=== PATIENT | male | born 1995 | race Two or more races ===

== ENCOUNTER → 2019-09-11 | Day surgery (SDC) | payer BC ==
[~2019-09-11] MED LIST: FENTANYL CITRATE/PF 100MCG/2 ML INJ ONE; MIDAZOLAM HCL 2 MG/2 ML VIAL ONE; PANTOPRAZOLE 40 MG 10ML VIAL ONE; PROPOFOL IV EMULSION 10 MG/ML 50 ML VIAL ONE
[2019-09-11 12:25] VITALS: BP 117/80
== END | disposition home or self-care (01) ==
LOC: OR 09:33
PROVIDERS: ATTEND Internal Medicine Gastroenterology
DX: K25.9 Gastric ulcer, unspecified as acute or chronic, without hemorrhage or perforation (principal); K20.9 Esophagitis, unspecified; K59.00 Constipation, unspecified
CPT/HCPCS: 43239; C9113; J2250; J2704; J3010

== ENCOUNTER → 2019-10-06 | Day surgery (SDC) | payer BC ==
[~2019-10-06] MED LIST changes: +HYOSCYAMINE 0.125 MG TAB ONE; -PANTOPRAZOLE 40 MG 10ML VIAL ONE
[2019-10-06 15:49] VITALS: BP 108/74
[2019-10-06 17:17] LABS: WBC,FECAL (FECAL LACTOFERRIN) NEGATIVE (NEGATIVE)
--- NOTE | 2019-10-06 17:39 | Operative Report ---
DATE OF PROCEDURE: 10/06/2019 SURGEON: Wilfrido De Leon MD PROCEDURE: Colonoscopy with biopsies. INDICATIONS FOR COLONOSCOPY: Rectal bleeding. MEDICATIONS: The patient was done under MAC, please see anesthesiologist's note. PROCEDURE IN DETAIL: With the patient in left lateral decubitus position, a flexible fiberoptic Olympus colonoscope was inserted into the rectum with ease and advanced all the way to the cecum. Mucosa overlying the cecum grossly appeared to be within normal limits. The ileocecal valve was intubated and the scope was advanced into the terminal ileum. One minute ulcer was noted in the terminal ileum and also there were some patchy mild inflammatory changes, multiple biopsies were obtained. The scope was then withdrawn back into the colon. It was then withdrawn slowly and mucosa overlying the ascending and the transverse appeared to be within normal limits. Mild inflammatory changes were noted in the left colon and the rectum and multiple random biopsies were obtained. The scope was then retroflexed into the distal rectum; small internal hemorrhoids were noted, none of which was actively bleeding. The scope was then straightened out, it was subsequently withdrawn. The patient tolerated the procedure well. IMPRESSION: 1. Ileitis, mild, biopsied. 2. Mild patchy left-sided colitis. 3. Proctitis, mild. 4. Internal hemorrhoids, none actively bleeding. PLAN: Follow up histology. Follow up stool studies. Check IBD panel, sedimentation rate, and CRP. Wilfrido De Leon MD [facility] [place] /[id number]
[2019-10-07 14:59] LABS: C DIFFICILE TOXIN A&B AMP PROB NEGATIVE (NEGATIVE)
== END | disposition home or self-care (01) ==
LOC: OR 13:12
PROVIDERS: ATTEND Internal Medicine Gastroenterology
DX: K51.50 Left sided colitis without complications (principal); K62.89 Other specified diseases of anus and rectum; K64.8 Other hemorrhoids
CPT/HCPCS: 45380; 83630; 83993; 87045; 87177; 87328; 87493; J2250; J2704; J3010; 45378